=== PATIENT | female | born 1970 | race Caucasian/White ===

== ENCOUNTER 2018-09-10 08:35 | Day surgery (SDC) | payer OTHER ==
[~2018-09-10 08:35] MED LIST: COZAAR25 MG PO; HYOSCYAMINE0.125 M1 SL; OXYC1TAB9 PO; RESTORA CAPSUL1 EACH PO
== END 2018-09-10 15:15 | disposition home or self-care (01) ==
LOC: AMB-ENDOS 08:35
DX: K64.8 Other hemorrhoids (principal)

== ENCOUNTER 2020-02-10 05:33 | Day surgery (SDC) | payer OTHER | END 2020-02-10 10:25 | disposition home or self-care (01) | LOC: AMB-ENDOS 05:33 | PROVIDERS: ATTEND Surgery | DX: K63.89 Other specified diseases of intestine (principal); K64.8 Other hemorrhoids ==